=== PATIENT | male | born 1945 | race Caucasian/White ===

== ENCOUNTER 2023-01-31 06:54 | Outpatient (CLI) | payer MEDICARE, BC, SELFPAY | END 2023-01-31 06:55 | disposition home or self-care (01) | LOC: INJ CL 06:58 | PROVIDERS: PCP Surgery; Visit Provider Family Medicine | DX: M54.16 Radiculopathy, lumbar region (principal); M51.36 Other intervertebral disc degeneration, lumbar region | CPT/HCPCS: 64483; J1100; Q9966 ==

== ENCOUNTER 2023-04-25 08:38 | Outpatient (CLI) | payer OTHER, SELFPAY ==
--- OUTSIDE RECORDS SUMMARY | 2023-04-25 08:43 | XMS_ITS | Continuity of Care Document ---
Author Name Unknown Organization [facility] Address [address] [place] [address] Phone Care Team Providers Care Family Intervention Specialist Name Role Phone Milton Newman MD Unavailable Unavailable Allergies, Adverse Reactions, Alerts Substance Reaction Status Criticality thiopental Fever Active No Information codeine Shortness of breath, tongue swelling Acti ve No Information Medications Medication Instructions Dosage Effective Dates (start - stop) Status Comments FINASTERIDE (unknown strength) Not Available - Active SIMVASTATIN (unknown strength) Not Available - Active TAMSULOSIN HCL (unknown strength) Not Available - Active IBUPROFEN (unknown strength) Not Available - Active GABAPENTIN (unknown strength) Not Available - Active LOW DOSE ASPIRIN EC (unknown strength) Not Available - Active Procedures Procedure Date Office/Outpatient Visit,New, Mod 2022 Office/Outpatient Visit,[facility], [facility] [place]Ray Exam Lower Spine 2-3 Views 2017 Office/Outpatient Visit,Est, Mod 2016 X-Ray Exam Lower Spine 2-3 Views 2016 Postop Followup Visit X-Ray Exam Lower Spine 2-3 Views 2016 Postop Followup Visit X-Ray Exam Lower Spine 2-3 Views 2016 Arthdsis Post/Posterolatrl/Postinterbody Lumbar Remove Lumbar Spine Lamina, 1 Seg Remove Added Spine Lamina, 1 Seg 2016 Insert Spine Fixation, Posterior 2016 Insert interbody cage w/fusion 17 Autograft, Spine Surgery, Local 017 Allograft, Spine Surg, Morselized Pa Arthdsis Post/Posterolatrl/Postinterb amanda Lumbar Remove Lumbar Spine Lamina, 1 Seg Pa Assist Remove Added Spine Lamina, 1 S eg Pa Assist Insert Spine Fixation, Posteri or Insert interbody cage w/fusion 17 Office/Outpatient Visit,Est, Mod 2015 Office/Outpatient Visit,Est, Mod 2014 X-Ray Exam Of Lower Spine, Bending X-Ray Exam Of Pelvis, 1-2 Views 015 Office/Outpatient Visit,New, Mod 2013 Advance Directives Directive Yes / No Effective Date File Name No Information Encounters Encounter Description Practice Location Reason(s) For Visit Diagnoses Date Provider Providers Copied on Encounter Office/Outpa tient Visit,New, [facility] [place] [facility], [address], [place], [place], [address], [place] tel:[phone] [facility] No Information 3 Mehbod Amir. [facility], [address], [place], [place], [address], [place]. tel:[phone] Referring Provider: Jarett John, [address], [address] . tel:[phone] Office/Outpa tient Visit,Est, Mod [facility], [address], [place], [place], [address], [place] tel:[phone] [facility] Arthrodesis status 8201 8 Mehbod Amir. [facility], [address], [place], [place], [address], [place]. tel:[phone] Referring Provider: Noy Tolbert, [facility] [address], [address], [place], [address] . tel:[phone] Office/Outpa tient Visit,Est, Mod [facility], [address], [place], [address], [place] tel:[phone] [facility] [place] Spinal stenosis, lumbosacral regionSpondyl olisthesis, lumbar regionArthrod esis statusOsteoar thritis of hip, unspecified Mehbod Amir. [facility], [address], [place], [place], [address], [place]. tel:[phone] Referring Provider: Jarett John, [address], [place], [address] . tel:[phone] [facility], [address], [place], [place], [address], [place] tel:[phone] [facility] [place] Arthrodesis status Demetrius Morrow. [address] [place] [address] [address], [place], [place], [address], [place]. tel:[phone] Referring Provider: Noy Tolbert, [facility] [place] [address], [address], [place], [address] . tel:[phone] [facility], [address], [place], [place], [address], [place] tel:[phone] [facility] Arthrodesis status 7 Mehbod Amir. [facility], [address], [place], [place], [address], [place]. tel:[phone] Referring Provider: Noy Tolbert, [facility] [place] [address], [address], [place], [address] . tel:[phone] [facility], [address], [place], [place], [address], [place] tel:[phone] [facility] No Information 7 Mehbod Amir. [facility], [address], [place], [place], [address], [place]. tel:[phone] Referring Provider: Jarett John, [facility] [address] , [place], [address] . tel:[phone] Office/Outpa tient Visit,Est, Mod [facility], [address], [place], [place], [address], [place] tel:[phone] [facility] [place] Spondylolisth esis, lumbar region Dec-0 8-201 6 Mehbod Amir. [facility], [address] [place] [address] [address], [place], [place], [address], [place]. tel:[phone] Referring Provider: Noy Tolbert, [facility] [address] [place] [address], [address], [place], [address] . tel:[phone] Office/Outpa tient Visit,Est, Mod [facility], [address], [place], [place], [address], [place] tel:[phone] [facility] [place] Osteoarthriti s of hipSpinal stenosis, lumbosacral region Nov-0 4-201 5 Tomasz Villafuerte. [facility], [address] [place] [address], [address], [place], [place], [address], [place]. tel:[phone] Referring Provider: Noy Tolbert, [facility] [address] [place] [address], [address], [place], [address] . tel:[phone] Office/Outpa tient Visit,New, Mod Z [facility], [address] [facility] [address] [address], [place], [address], [place] tel:[phone] [facility] - [facility] No Information 0 3201 4 Tomasz Villafuerte. [facility], [address] [place] [address], [address], [place], [place], [address], [place]. tel:[phone] Referring Provider: Jarett John, [facility] [address] , [place], [address] . tel:[phone] Family History Family Member Type Diagnosis Age At Onset Problem (finding) Payers Payer name Insurance type Covered alliance party [place] [id number] Medicare [facility] BL [id number] 1 [employer] [place] [id number] Social History Type Description Quantity Date Captured Comments Sex Male Smoking Status No Information Chief Complaint And Reason For Visit No Information Reason For Referral Reason For Referral No Information Plan Of Treatment Date Type Action Status Future Order: Radiology Order F/ E Lumbar (F/ELumb), Ordered on: Ordered Future Order: Radiology Order Pe lvis 1 Or 2 Views (pelvis), Ordered on: Ordered History Of Present Illness Encounter Date Complaint History Of Prese nt Illness No Information Functional Status Date Functional Assessmen t No Information Instructions Date Instruction Additional Infor tamiko Weight Management Education Rela nolan to Overweight Weight management: I nstructed to return to General Practitioner timeframe: 1 Month. Related to Overweight Weight Management Education Rela nolan to Overweight Weight management: I nstructed to return to General Practitioner timeframe: 1 Month. Related to Overweight Weight Management Education Rela nolan to Overweight Weight management: I nstructed to return to General Practitioner timeframe: 1 Month. Related to Overweight Assessments Type Assessment Date No Information Patient Care Teams Name Effective Dates (start - stop) Status Members No Information
--- NOTE | 2023-04-25 09:15 | CRLHL7_ITS ---
For Patients: As a result of the Century Cures Act, medical imaging exams and procedure reports are released immediately into your electronic medical record. You may view this report before your referring provider. If you have questions, please contact your health care provider. Indication: Worsening headaches. Technique: Multiplanar, multisequence MRI of the brain was performed without intravenous contrast. Comparison: None relevant available. Findings: Mild thinning of the corpus callosum. The pituitary gland and clivus appear intact. Mild degenerative change visualized upper cervical spine. There is a 2 mm focus of restricted diffusion within the left frontal lobe. Associated T2 FLAIR hyperintensity. The ventricles are proportionate to the cerebral sulci. The 4th ventricle appears midline. The basal cisterns appear patent. No abnormal extra-axial fluid collection identified. Moderate parenchymal volume loss. Moderate to severe T2 FLAIR hyperintense foci within the subcortical and periventricular white matter, favored to represent chronic ischemic microvascular disease. There is no intracranial mass, abnormal mass-effect or midline shift identified. Major intracranial vascular flow voids appear grossly intact. Both globes are preserved. Impression: 1. 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 2. 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 Dictated by Ed Pickard MD @ 04/25/2023 2:52:49 PM (Electronically Signed)
== END 2023-04-25 08:39 | disposition home or self-care (01) ==
PROVIDERS: PCP Surgery; Visit Provider Chiropractor
DX: R51.9 Headache, unspecified (principal); I63.9 Cerebral infarction, unspecified; R55 Syncope and collapse
CPT/HCPCS: 70551

== ENCOUNTER 2023-06-08 14:38 | Outpatient (CLI) | payer OTHER, SELFPAY ==
--- OUTSIDE RECORDS SUMMARY | 2023-06-08 14:42 | XMS_ITS | Continuity of Care Document ---
Author Name Unknown Organization [facility] Address [address] [place] [address] Phone Care Team Providers Care Mail Clerk Name Role Phone Milton Newman MD Unavailable [...] Procedure Date Office/Outpatient Visit,New, Mod 2022 Office/Outpatient Visit,[facility], [facility] [place] X-Ray Exam Lower Spine 2-3 Views [...] Diagnoses Date Provider Providers Copied on Encounter [facility], [address], [place], [place], [address], [place] tel:[phone] [facility] No Information 3 Mehbod Amir. [facility], [address] [place] [address] [address], [place], [place], [address], [place]. tel:[phone] Office/Outpa tient Visit,New, Mod [facility], [address], [place], [place], [address], [place] tel:[phone] [facility] [place] No Information 3 Mehbod Amir. [facility], [address] [place] [address] [address], [place], [place], [address], [place]. tel:[phone] Referring Provider: Jarett John, [facility] [address], [place], [address] . tel:[phone] Office/Outpa tient Visit,Est, Mod [facility], [address], [place], [place], [address], [place] tel:[phone] [facility] [place] Arthrodesis status 201 8 Mehbod Amir. [facility], [address] [place] [address] [address], [place], [place], [address], [place]. tel:[phone] Referring Provider: Noy Tolbert, [facility] [address], [address], [place], [address] . tel:[phone] Office/Outpa tient Visit,Est, Mod [facility], [address], [place], [place], [address], [place] tel:[phone] [facility] [place] Spinal stenosis, lumbosacral regionSpondyl olisthesis, lumbar regionArthrod esis statusOsteoar thritis of hip, unspecified 0-201 7 Mehbod Amir. [facility], [address] [place] [address] [address], [place], [place], [address], [place]. tel:[phone] Referring Provider: Jarett John, [address], [address] . tel:[phone] [facility], [address], [place], [place], [address], [place] tel:[phone] [facility] [place] Arthrodesis status 0201 7 Demetrius Morrow. [address] [place] [address] [address], [place], [place], [address], [place]. tel:[phone] Referring Provider: Noy Tolbert [facility] [address], [address], [place], [address] . tel:[phone] [facility], [address], [place], [place], [address], [place] tel:[phone] [facility] [place] Arthrodesis status 3-201 7 Mehbod Amir. [facility], [address] [place] [address] [address], [place], [place], [address], [place]. tel:[phone] Referring Provider: Noy Tolbert [facility] [address], [address], [place], [address] . tel:[phone] [facility], [address], [place], [place], [address], [place] tel:[phone] [facility] No Information 0-201 7 Mehbod Amir. [facility], [address], [place], [place], [address], [place]. tel:[phone] Referring Provider: Jarett John, [facility] [address], [place], [address] . tel:[phone] Office/Outpa tient Visit,Est, Mod [facility], [address], [place], [place], [address], [place] tel:[phone] [facility] [place] Spondylolisth esis, lumbar region 0 8201 6 Mehbod Amir. [facility], [address] [place] [address] [address], [place], [place], [address], [place]. tel:[phone] Referring Provider: Noy Tolbert, [facility] [address] [place] [address], [address], [place], [address] . tel:[phone] Office/Outpa tient Visit,Est, Mod [facility], [address], [place], [place], [address], [place] tel:[phone] [facility] [place] Osteoarthriti s of hipSpinal stenosis, lumbosacral region Nov-0 4-201 5 Tomasz Villafuerte. [facility], [address] [place] [address], [address], [place], [place], [address], [place]. tel:[phone] Referring Provider: Noy Tolbert, [facility] [address], [address], [place], [address] . tel:[phone] Office/Outpa tient Visit,New, Mod Z [facility], [address] [place] [address] [address], [place], [address], [place] tel:[phone] [facility] No Information 0 3-201 4 Tomasz Villafuerte. [facility], [address], [address], [place], [address], [place]. tel:[phone] Referring Provider: Jarett John, [facility] [address], [place], [address] . tel:[phone] Family History Family Member Type Diagnosis Age At Onset Problem (finding) Payers Payer name Insurance type Covered alliance party ID Gt tripathi(s) [facility] [id number] Medicare [facility] [id number] 1 [facility] [place] [facility] [id number] Social History Type Description Quantity Date Captured Comments Sex Male Smoking Status No Information Chief Complaint And Reason For Visit No Information Reason For Referral Reason For Referral No Information Plan Of Treatment Date Type Action Status Appointment Sen Lowery BOOKED Future Order: Radiology Order AP Lateral Lumbar (APLatLumb), Ordered on: Ordered Future Order: Radiology Order F/ E Lumbar [...]
== END 2023-06-08 14:39 | disposition home or self-care (01) ==
LOC: RAD 14:40
PROVIDERS: PCP Surgery; Visit Provider Chiropractor
DX: I63.9 Cerebral infarction, unspecified (principal); I35.1 Nonrheumatic aortic (valve) insufficiency; I34.0 Nonrheumatic mitral (valve) insufficiency; I07.1 Rheumatic tricuspid insufficiency
CPT/HCPCS: 93306

== ENCOUNTER 2023-09-20 09:45 | Outpatient (RCR) | payer MEDICARE, BC, SELFPAY ==
--- NOTE | 2023-07-12 10:21 | PT.OPEX ---
PT [place] Outpatient Eval PT [facility] Outpatient Eval Start: 07/07/23 11:42 Freq: Status: Active Protocol: Document 07/12/23 07:21 MLS (Rec: 07/12/23 10:05 MLS [id number]) E-signed By Josefa Liu DPT Physical Therapy Outpatient Evaluation Insurance Information Recert Due Date 10/09/23 Insurance Name Medicare B,Other; See Comments Insurance Information/Comments [facility] Medical Diagnosis M48.061 spinal stenosis of lumbar region Treating Diagnosis M54.5 LBP R26.2 Difficulty walking M54.16 Radiculopathy, lumbar region Referring MD Jarett Gant MD Subjective Subjective Roman reports to physical therapy with reports of low back pain that started years ago. He states that he had an injection in May, but it didn't help. He reports that he had minimal relief of pain for about a week but then all of his pain was back. He currently is going to try physical therapy before making plans for surgery. He reports that the pain goes across his low back, at his belt line, and is worse on the left side, but goes down his right leg. He states that he has right leg numbness and tingling to his knee, and it happens anytime he moves from sit to stand. He states that the pain is dull, achy, throbbing, sharp, and burning in nature. He states that sitting in his easy chair with his legs up is the best position. He reports that he can tolerate shorter sits but the longer he sits, the worse the pain gets. He states that any standing is bad, and walking is even worse. He states that he will use an ice pack and take ibuprofen at times. He reports that hot baths feel good, but he has a lot of difficulty getting out of the tub. He reports that the pain has really gotten bad over last three months. He reports that a couple months ago he was walking 10,000 steps and now he is rivera to get 1000 steps. 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 He states that he is able to sleep flat on his back with his right ankle crossed over his left or on his right side in bed. He states that he does fall asleep in his easy chair during the day. He also reports that he has been having severe dizziness and severe neck pain. He reports that his dizziness started about a year ago and caused him to start walking with a cane. He states that movement makes the dizziness worse. He reports that his primary physician , so he is just starting to get some testing done regarding his dizziness next week. He rates his dizziness at a 10/10 at times. According to the patient, he is having neck x- rays and an EEG next week. He states that his bedroom is upstairs, and bathroom is on the main level. He reports that he has 15 stairs to go up and down in his home. He reports that he leads up with his right leg and follows with his left leg. He states that his left leg feels weak, and he is afraid it will give out on him. He states that he has a recumbent bike downstairs, but currently isn't using it. He states that he had two falls in last 3 months, and both were from standing up and right leg gave out. Pain Comments Today: 9/10 on a 0-10 pain scale with 10 = extreme pain At its worst: 10/10 At its best: 4-5/10 Current Work Status Retired Occupation Retired Preferred Name Roman Precautions Treatment Precautions/Contraindications Patient has a very long PMH. He has had diabetes for several years. He reports diagnosis of bladder cancer for six years, and it is in remission now. It has come back three times in the last 6 years. He has left IRA and bilateral TKA. He states that he had right TKA during the first week of [facility], so he didn't do any rehab after surgery. He reports that he has had problems with his right knee ever since. He states that he had a TIA about a month ago. He did a CT scan, which showed 3 previous TIAs. He states that he does not notice any physical impairments from these, but he does lose control of right eye when it happens. Weight Bearing Status Full Weight Bearing Therapy Limitations/Systems Review Other Medical Problem Objective Other/Pertinent Objective Objective evaluation limited secondary to patients' intolerance of all positions due to pain. Patient ambulates with a single point cane Posture Assessment: Forward head posture Decreased lordosis LUMBAR ROM Flexion: full, severe pain with coming up Extension: 0 severe pain Right Sidebend: 25% severe pain Left Sidebend: 10% severe pain Right Rotation: 25% severe pain Left Rotation: 25% severe pain LE MMT Hip flexion: R 3-/5 L 3-/5 severe pain Hip Extension: not tested secondary to pain Hip abduction: not tested secondary to pain Knee extension: R 5/5 L 5/5 Knee Flexion: R 4/5 L 4-/5 severe pain Dorsiflexion/heel walk: unable to perform Plantarflexion/toe walk: unable to perform Great Toe Extension: R 5/5 L 5 /5 Severe pain and difficulty moving from sit to supine on treatment table JOINT MOBILITY/PALPATION Moderate tenderness with multiple tender spots along bilateral QL and ES with palpation SPECIAL TESTS -Single leg stance: unable to perform -Slump test: positive on left with pain -Straight leg raise: pain on both sides SI/HIP - unable to perform due to severity of pain with movement in supine position -ASHELY: CAROLIN: -MAK: [place]: Access Code: [email or web address] URL: [email or web address] Date: 07/12/2023 Prepared by: Josefa Liu Exercises - Supine Heel Slide - 2 x daily - 7 x weekly - 2 sets - 10 reps - Supine Posterior Pelvic Tilt - 2 x daily - 7 x weekly - 2 sets - 10 reps - Supine 90/90 Alternating Heel Touches with Posterior Pelvic Tilt - 2 x daily - 7 x weekly - 2 sets - 10 reps Functional Test Performed & Score 29/50 Modified Oswestry Low Back Pain Questionnaire Assessment Assessment/Impression Patient is a 78-year-old male presenting to physical therapy for evaluation and treatment of low back pain. Patient presents with a very complicated medical history and multiple contributing factors to his current status. He has severe low back pain worse on the right side but radiating down into his right leg. He has severe dizziness and neck pain that he will be seeing his physician for next week. Today, the severity with pain upon any movement was the limiting factor in his evaluation and treatment. Any movement also brought on severe dizziness. The pain and dizziness hold him back from doing most things throughout his day besides sitting with his feet elevated . Patient is willing to try physical therapy in hopes of some relief. Patient would benefit from skilled physical therapy interventions to facilitate return to prior level of function, improve overall activity tolerance and address any remaining impairments. Primary Functional Limitations sitting, standing, walking, getting in/out of bed, movement in all directions, severe dizziness, severe LBP, bilateral knee pain worse on right, leg weakness Plan of Care Rehabilitation Potential Fair Rehabilitation Potential Comments Patient has a very complicated medical history with multiple current issues. The severity of his pain and dizziness were limiting factors in today 's evaluation. i Physical Therapy Goals STG: Pt will demonstrate independence in performance of home exercise program with the use of video and/or handouts in order to optimize functional mobility and reduce risk for re-injury. Patient will be able to sit for up to one hour with <3/10 pain. Patient will be able to ride his recumbent bike for 20 min with <3/10 pain. LTG: Pt will be able to ascend/ descend 1 flight of stairs in order to get to and from bedroom and bathroom with <3/ 10 pain. Patient will be able to walk and get 5000 steps/day to tolerate moving around his home and going shopping wtih his with <3/10 pain. Patient will report pain levels <2/10 with all other activities in order to improve functional mobility at home and during functional leisure activities. Coordination/Communication With Referral Source Treatment Plan/Direct Interventions Gait Training,Manual Therapy, Neuromuscular Re-ed, Therapeutic Activities, Therapeutic Exercises Patient Will Be Discharged From Therapy Independently Progressing Evaluation Billing Untimed Code Treatment Minutes 45 Complexity High Certification Information Initial Certification Date 07/12/23 Ending Certification Date 10/09/23 Provider Signature Shows Agreement With POC & Medical Necessity Physician Signature & Date Requested Please Sign/Date Here Physician Comment/Change : Physician NPI Number #
== END 2023-11-06 15:15 | disposition home or self-care (01) ==
PROVIDERS: PCP Surgery; Visit Provider Surgery
DX: M48.061 Spinal stenosis, lumbar region without neurogenic claudication (principal); Z51.89 Encounter for other specified aftercare
CPT/HCPCS: 97110; 97140; 97163; 97530

== ENCOUNTER 2024-09-11 14:00 | Outpatient (RCR) | payer MEDICARE, BC, SELFPAY | END 2024-09-27 12:22 | disposition home or self-care (01) | PROVIDERS: PCP Surgery; Visit Provider Surgery | DX: I63.9 Cerebral infarction, unspecified (principal); R47.89 Other speech disturbances; Z51.89 Encounter for other specified aftercare | CPT/HCPCS: 96125; 97110; 97112; 97162; 97165; 97530; 97535 ==

== ENCOUNTER 2025-06-20 11:30 | Emergency (ER) | payer MEDICARE, OTHER, SELFPAY ==
--- OUTSIDE RECORDS SUMMARY | 2025-06-20 11:33 | XMS_ITS | Clinical Summary ---
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 90 tablet 3 7 Active valproic acid 250 mg capsule Take 3 capsules by mouth 2 times daily. 0 8 Active oxybutynin (DITROPAN) 5 mg tabletIndication s:Overactive bladder Take 0.5 tablets by mouth 2 times daily. 60 tablet 0 Active blood sugar diagnostic (CONTOUR NEXT TEST STRIPS) stripIndications :Type 2 diabetes mellitus without complication, without long-term current use of insulin (HC) Dispense item covered by pt ins. E11.9 NIDDM type II - Test 1 time/day. Reason: 100 Strip 3 0 Active lancets (MICROLET LANCET)Indicatio ns:Type 2 diabetes mellitus without complication, without long-term current use of insulin (HC) Dispense item covered by pt ins. E11.9 NIDDM type II - Test 1 time/day. 100 Each 3 0 Active blood-glucose meterIndications :Type 2 diabetes mellitus without complication, without long-term current use of insulin (HC) Test one time daily 1 Device 0 Active riboflavin, vitamin B2, (VITAMIN B2) 100 mg tablet Take 400 mg by mouth once daily. 3 Active cyanocobalamin (VITAMIN B12) 1,000 mcg tablet Take 1,000 mcg by mouth once daily. 3 Active atorvastatin (LIPITOR) 20 mg tablet Take 20 mg by mouth at bedtime. 3 Active aspirin (ECOTRIN) 81 mg enteric coated tablet Take 81 mg by mouth once daily with a meal. 3 Active amoxicillin (AMOXIL) 500 mg capsule Take 500 mg by mouth. 3 Active acetaminophen (TYLENOL) 325 mg tablet Take 650 mg by mouth every 6 hours. 3 Active methyl salicylate-menth ol (ZOILA WALKER; MENTHOLATUM DEEP HEAT) 15-10 % topical cream Apply topically to affected area(s) 3 times daily if needed. 3 Active ibuprofen (ADVIL; MOTRIN) 800 mg tablet Take 800 mg by mouth three times daily with meals. 3 Active cellulose-carbox y-mc sod,bulk, 88.3-11.7 % powd Place 3 Drops into both eyes three times daily. 3 Active metFORMIN (GLUCOPHAGE XR) 500 mg Extended-Release tabletIndication s:Type 2 diabetes mellitus without complication, without long-term current use of insulin (HC) Take 3 Tablets (1,500 mg) by mouth once daily. 270 Tablet 4 Active backup administrator (Dexcom G7 Legal Document Assistant) for continuous blood glucose monitor (CGM)Indications :Type 2 diabetes mellitus without complication, without long-term current use of insulin (HC) This is for the glucose BALANCER SCALE , also order the sensors. 1 Each 5 Active sensor (Dexcom G7 Sensor) for continuous blood glucose monitor (CGM)Indications :Type 2 diabetes mellitus without complication, without long-term current use of insulin (HC) To be used to read blood sugars, change sensor every 10 days. This is for the glucose SENSOR, also order the backup administrator. 9 Each 3 5 Active semaglutide (OZEMPIC) 2 mg/3 mL subcutaneous pen Inject 0.5 mg subcutaneous once weekly. 5 Active sildenafiL (pulm.hypertensi on) 20 mg tabletIndication s:Erectile dysfunction, unspecified erectile dysfunction type Take 1-5 pills (start at lower dose and increase next time if needed) 30 mins prior to sexual intercourse 30 Tablet 3 5 Active Active Problems Problem Noted Date Diagnosed Date Cerebral infarction, unspecified 08/09/2024 Bladder tumor 08/09/2024 Sensorineural hearing loss, bilateral 11/07/2022 Seizure disorder 10/25/2019 Overview (10/25/2019): On valproic acid. Last seizure years ago. Follows with [facility] at [facility]. Type 2 diabetes mellitus wit h diabetic polyneuropathy, without long-term current use of insulin 08/25/2017 Lumbar spinal stenosis 10/19/2016 Arthritis of left hip 12/04/2015 Benign neoplasm of colon 01/02/2009 Overview (08/26/2014): Colonoscopy 12/2008 polyp repeat in 5 years Colonoscopy 08/2014 normal repeat in 5 years Carpal tunnel syndrome 01/28/2008 Degeneration of cervical intervertebral disc SLEEP APNEA 01/02/3008 AHI-60 01/14/2008 Backache, unspecified 03/29/2007 Tinnitus of both ears 03/29/2007 Hyperlipidemia, unspecified 03/29/2007 Chronic headache Overview (11/10/2008): secondary to neck surgery Erectile dysfunction Benign prostatic hyperplasia Resolved Problems Problem Noted Date Diagnosed Date Resolved Date Other and unspecified hyperlipidemia 12/25/2007 12/25/2007 Unspecified sleep apnea 12/25/2007 04/04/2008 Encounters Date Type Department Care Team Description 05/30/2025 1:35 PM CDT Office Visit [facility] [address] [place] [address] Jarett Gant MD Diabetes 05/30/2025 Travel 05/12/2025 1:00 PM CDT Office Visit [facility] [address] [facility] [address] Marjan Rahman, Chuck Hearing Aid (NGUYEN check) 05/12/2025 Travel 05/05/2025 Telephone [facility] [address] [facility] [address] Maxim Norris, Chuck 03/26/2025 4:00 PM CDT Office Visit [facility] [address] [place] [address] Maxim Norris, AuD Hearing Aid 03/26/2025 Travel from Last 3 Months Immunizations Immunization Administration Dates Next Due COVID-19 vaccine (Pfizer-Bio NTech 30mcg/0.3mL) 12YO+ BIVALENT PF, MDV 09/08/2022 COVID-19 vaccine (Pfizer-Bio NTech 30mcg/0.3mL) PF, MDV 07/07/2021,11/28/2020,11/07/2020 Influenza Virus, Unspecified 07/08/2022, 07/07/2021,06/25/2020,2018,08/10/2018,08/09/2017 Influenza, High-dose Inactivated 08/07/2024,11/2017 Influenza, High-dose Quadriv alent Inactivated 08/10/2023 Influenza, Inactivated AIIV4 (Age 65+ Years) Preserv Free 08/10/2023 Influenza, Inactivated IIV3 (Age 65+ Years) Preserv Free 08/09/2017 Pneumococcal Conj 20-valent (Prevnar 20) 07/08/2022 Pneumococcal Poly,23-Valent (Pneumovax) 08/10/2018 TD, UNSPECIFIED 10/09/2009 Td (Age >=7 Years) 10/13/2005 Td, Preservative Free (age > = 7 Years) 10/13/2005 Tdap 08/23/2015 Zoster (Shingrix-RZV, recombinant) 12/08/2021, Zoster (Zostavax-ZVL, live) 2006 Family History Medical History Relation Name Comments Heart Disease Father Stroke Father Blood Disease Mother blood disease, rare Cancer-breast Sister 5 Relation Name Status Comments Brother 1 MVA Brother 2 Alive Father (Age 72) [place] Mother (Age 73) Sister 1 breast ca Sister 2 Alive Sister 3 Alive Sister 4 Alive Sister 5 Social History Tobacco Use Types Packs/Day Years Used Date Smoking Tobacco: Never Smokeless Tobacco: Never Tobacco Cessation:Counseling Given: Yes Alcohol Use Standard Drinks/Week Comments No 0 (1 standard drink = 0.6 oz pur e alcohol) PHQ-2 Answer Date Recorded PHQ-2 TOTAL SCORE 1 08/09/2024 Social Connections Answer Date Recorded Do you often feel lonely or isolated from those around you? 0 11/11/2024 Financial Resource Strain Answer Date R ecorded Difficulty of Paying Living Expenses 3 11/11/2024 Difficulty of Paying Living Expenses Not on file 11/11/2024 Food Insecurity Answer Date Recorded Do you worry your food will run out before you are able to buy more? 1 11/11/2024 Transportation Needs Answer Date Record ed Does lack of transportation keep you from medica l appointments? 1 11/11/2024 Does lack of transportation keep you from work, meetings or getting things that you need? 1 11/11/2024 Housing Stability Answer Date Recorded What is your housing situation today? 1 11/11/2024 Utilities Answer Date Recorded Do you have trouble paying f or utilities (for example, heat, electricity, water, phone)? 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 Gender Identity Not on file Sexual Orientation Not on file Obstetrics History Last Filed Vital Signs Vital Sign Reading Time Taken Comments Blood Pressure 128/80 05/30/2025 1:28 PM CDT Pulse 55 05/30/2025 1:28 PM CDT Temperature 36.6 C (97.8 F) 11/09/2019 9:26 AM SYSTEMS PROJECT MANAGER Respiratory Rate 16 03/30/2017 3:13 PM CDT Oxygen Saturation 97% 05/30/2025 1:27 PM CDT Inhaled Oxygen Concentration - - Weight 87.3 kg (192 lb 8 oz) 05/30/2025 1:27 PM CDT Height 158.1 cm (5' 2.24) 08/09/2024 1:11 PM CD T Body Mass Index 34.93 08/09/2024 1:11 PM CDT Plan of Treatment Upcoming Encounters Date Type Department Care Team (Late st Contact Info) Description 07/03/2025 3:40 PM CDT Office Visit [facility] [address] [facility] [address] [place] [address] Mallorie Liu MD [address] [facility] [address] [place] [address] Health Maintenance Due Date Last Done Comments Hepatitis C screening for age 18-79 1963 RSV vaccine for adults or (1 - 1-dose 75+ series) 2021 COVID-19 vaccine series ( season) 2025 08/07/2024, 08/10/2023, 09/08/2022, Additional history exists Influenza Vaccine (#1) 2025 , 08/10/2023, 07/08/2022, Additional history exists BMI (ht and wt on same day) for age 18+ 08/09/2025 08/09/2024, 11/06/2023, 10/25/2019, Additional history exists Depression screening for age 12+ 08/09/2025 08/09/2024, 11/06/2023, 09/27/2022, Additional history exists Medicare Wellness for age 65+ 08/10/2025 08/09/2024 Tetanus booster 08/23/2025 08/23/2015, 02/2015 (Completed outside of [facility]), 10/09/2009, Additional history exists Zoster (shingles) series for age 50+ Completed 12/08/2021, 09/09/2021, 2006 Pneumococcal series for age 50+ Completed 07/08/2022, 08/10/2018 Hepatitis B series for 19+ Aged Out N o longer eligible based on patient's age to complete this topic Medical Devices Implanted Type Area Ice Scraper Device Identifier Shelf Expiration Date Model / Serial / Lot [id number] 1-4mm 30cc Medtronic Chips Canclls Freeze Dried Implanted:Qty: 1 on 10/18/2016 by Milton Newman MD at [facility] Explanted:at [facility] (Quantity not on file) N/A: Spine Medtronic Spine/Ortho 07/18/2021 [id number] / [id number] / Screw Lmbr Post 6.5x45mm Trio Va Std - [id number] Implanted:Qty: 2 on 10/18/2016 by Milton Newman MD at [facility] N/A: Spine Dang Spine [id number] / / Screw Lmbr Post 6.5x50mm Trio Va Std - [id number] Implanted:Qty: 2 on 10/18/2016 by Milton Newman MD at [facility] N/A: Spine Cheswold Spine [id number] / / Cnnctr Lmbr 53-73mm Joan Iii Va - [id number] Implanted:Qty: 1 on 10/18/2016 by Milton Newman MD at [facility] N/A: Spine Cheswold Spine [id number] / / Cnnctr Lmbr Sm Trio Offset - [id number] Implanted:Qty: 4 on 10/18/2016 by Milton Newman MD at [facility] N/A: Spine Cheswold Spine [id number] / / Peter Lmbr 40mmx3.5in Joan Ii Radius - [id number] Implanted:Qty: 2 on 10/18/2016 by Milton Newman MD at [facility] N/A: Spine Dang Spine [id number] / / Spacer Lmbr [id number] 0deg Avsunilif - [id number] Implanted:Qty: 1 on 10/18/2016 by Milton Newman MD at [facility] N/A: Spine Cheswold Spine [id number] / / Procedures Procedure Name Priority Date/Time Associated Diagnosis Comments PATH TISSUE EXAM Routine 05/30/2025 2:08 PM CDT Lesion of skin of left ear HEMOGLOBIN A1C MONITORING (POCT) Routine 05/30/2025 1:21 PM CDT Type 2 diabetes mellitus with diabetic polyneuropathy, without long-term current use of insulin (HC) from Last 3 Months Results * PATH TISSUE EXAM (05/30/2025 2:08 PM CDT) Case Report Pathology Report Case: [id number] Authorizing Provider: Jarett Gant MD Collected: 05/30/2025 1408 Ordering Location: [facility] Received: 05/30/2025 1549 Clinic Pathologist: Nelida Dixon MD Specimen: Left Ear 06/03/2025 3:21 PM CDT [facility] [employer] [facility] Final Diagnosis SKIN, LEFT EAR, BIOPSY: 1. 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 Margins: POSITIVE (deep and peripheral) 06/03/2025 3:21 PM CDT [facility] [employer] [facility] at 1521 CDT Clinical Information Left ear skin lesion. 06/03/2025 3:21 PM CDT [facility] Gross Description A) Received in formalin, labeled with the patient's name and date of , is a 0.5 x 0.3 cm skin biopsy. There is a 0.5 x 0.3 cm crusted morin lesion. The specimen is inked blue, bisected and entirely submitted in one cassette. [facility] 06/02/2025 06/03/2025 3:21 PM CDT [facility] Microscopic Description The final diagnosis is based on microscopic examination of appropriate sections of all specimens. Sections show a hyperkeratotic surface epithelium with significant cytologic atypia, marked lack of polarization, and mitotic activity but no invasive component. There is solar elastosis. The presence of blue ink is confirmed on tissue sections. 06/03/2025 3:21 PM CDT [facility] Additional Information Interpreted at [facility] - [address] [place] [address], [place] [address] 06/03/2025 3:21 PM CDT [facility] [employer] [facility] Other (Left Ear) Non-Blood / Unknown 05/30/2025 2:08 PM CDT 05/30/2025 3:49 PM CDT us Jarett Gant MD PATHOLOGY/CYTOLOGY Final R esult [facility] [address] [place] [address], * (ABNORMAL) POCT Hemoglobin A1C Monitoring (05/30/2025 1:21 PM CDT) POC HEMOGLOBIN A1C 6.4(H) <6.0 % OF TOTAL HGB 05/30/2025 1:31 PM CDT [facility] Comment: Any point of care results exhibiting inconsistency with the patient's clinical status should be repeated using a different testing method. Blood BLOOD SPECIMEN / Unknown [facility] / Unknown 05/30/2025 1:21 PM CDT 05/30/2025 1:22 PM CDT Jarett Gant MD CHEMISTRY Final Resu lt Performing Organization Address [facility] Co de Phone Number [facility] [address] [address], [place] [phone] [facility] [address] [place] [address], [place] [phone] from Last 3 Months Insurance MEDICARE PART B HB ONLY MEDICARE PART A HB ONLY [employer] [place] BLUE HB ONLY [facility] [facility] MEDICARE ADVANTAGE MR Advance Directives * Full Code (Latest Code Status on File) Date Activated Date Inactivated Comments 10/18/2016 7:38 PM 10/21/2016 12:40 PM * Full Code Date Activated Date Inactivated Comments 10/18/2016 10:33 AM 10/18/2016 7:38 PM Care Teams Railroad Brake Repairer Relationship Specialty Start Date End Date Jarett Gant MD [address] [place] [address] PCP - General Family Practice 10/15/15 Jeovany Brown MD [address] [place] [address] Family Practice 11/06/23
[2025-06-20 11:41] VITALS: BP 123/91; PULSE 85; RESP 18; TEMP 37.1; O2SAT 95; BMI 34.0
--- NOTE | 2025-06-20 12:00 | ED.GENADULT ---
HPI - General Adult General Time Seen by Provider: 12:00 Date Seen: 06/20/25 Chief complaint: Back Injury/Pain Stated complaint: Fall, back pain Time Seen by Provider: 06/20/25 11:41 Source: patient and RN notes reviewed Mode of arrival: ambulatory Limitations: no limitations History of Present Illness HPI narrative: This 80-year-old male is brought in and accompanied by his son with 2 falls. He was placing up assign, caught his foot in the hole and fell hitting his head on the pole of the sign, fell onto the right shoulder and elbow. He later was walking with his , his felt he tripped on the curb but he feels like he just lost his balance. Both he and his son corroborate that he has chronic balance issues. He has a history of a TBI. He denies any headache or visual changes, no loss of consciousness. No headache. He has chronic neck pain but states that is at baseline. His son notes that his neck is completely fused. He notes no pain going down into the arms but he does have right shoulder pain, was complaining about right elbow pain in triage. He denies any pain in his left arm, he does state when he went down, his right chest wall hip this IN, this hurt initially but isn't. He denies any chest pain now, no shortness of breath. No abdominal pain. He takes aspirin daily but no blood thinners. Related Data Home Medications ?Medication ?Instructions ?Recorded ?Confirmed aspirin 81 mg capsule 81 mg PO DAILY 06/20/25 06/20/25 atorvastatin 20 mg tablet 20 mg PO DAILY 06/20/25 06/20/25 cyanocobalamin (vitamin B-12) 1,000 mcg PO DAILY 06/20/25 06/20/25 1,000 mcg capsule finasteride 5 mg tablet 5 mg PO DAILY 06/20/25 06/20/25 metformin 500 mg tablet 500 mg PO BID 06/20/25 06/20/25 oxybutynin chloride 5 mg tablet 2.5 mg PO DAILY 06/20/25 06/20/25 valproic acid 250 mg capsule 500 mg PO BID 06/20/25 06/20/25 Allergies Allergy/AdvReac Type Severity Reaction Status Date / Time codeine Allergy Severe Anaphylaxis Verified 06/20/25 11:52 sodioum pentothol Allergy Severe high fever Uncoded 06/20/25 11:52 Review of Systems Status of ROS: Reports: 6 or more systems reviewed and unremarkable except as noted in History and below [facility] Medical History (Updated 06/20/25 @ 14:05 by Meagan Hanson MD) TBI (traumatic brain injury) ?S06.9XAA - Unspecified intracranial injury with loss of consciousness status unknown, initial encounter (ICD-10) Exam Const: Vital Signs, click to edit/add: Vital Signs - 24 hr 06/20/25 11:41 Temperature 98.7 F Pulse Rate [Pulse Oximeter] 85 Respiratory Rate 18 Blood Pressure [Le ft Upper Arm] 123/91 H Pulse Oximetry 95 Oxygen Delivery Me thod Room Air This 80-year-old male is alert, interactive, no apparent distress. He is very conversive and talkative. Head atraumatic, face atraumatic. He is wearing glasses, no facial trauma noted. Pupils equal round, sclera clear, extraocular muscles intact. Symmetrical facial function. Neck with no palpable tenderness, baseline range of motion per his report, no increased pain with range of motion. He has limitations of mobilization of his right shoulder. I do not feel like there is any dislocation. His clavicles seemed to have the same contour and are nontender. Any attempt at mobilizing his shoulder is painful though. He complains of pain when I attempt to flex and extend his elbow. His right wrist has no pain, hand and fingers seem to be normal. Left extremity/upper is normal without any pain on range of motion, no traumatic change. He is able to sit up, no midline tenderness of his back, no traumatic change noted. Lungs are clear, good air entry, no wheezing or crackles, no tachypnea. CV regular rate and rhythm, no murmur. No tenderness over his anterior chest wall, no traumatic skin changes noted. Abdomen is mildly obese but soft, nontender. He did ambulate in, is no complains of pain through his pelvis or his lower extremities. Documenting provider has reviewed patient's vital signs: yes Course Course ED Course: We have discussed doing head CT imaging and the rationale for this. We did discuss his patient's age it can take much less trauma for bleeding and he is on an 81 mg aspirin. I do not suspect any clinically significant traumatic bleed at this time but we did state that sometimes we will find small bleeds that need following through time to ensure that they are not becoming critical. He does agree to do the head CT. I do think we should do some cervical imaging. I do not know that he needs a full CT of his neck as he has no acute neurologic changes and does not have any new change to his pain in his neck. However, the fact that he has chronic neck pain I do think I at least want some basic imaging. Will look at his chest as well his his right shoulder and elbow. Will get him some Tylenol for pain management. He did take an ibuprofen couple of hours ago but reviewed with him that it is fine to try some Tylenol now Reevaluation(s) Time of Reevaluation #1: 13:56 Reevaluation #1: Reviewed negative imaging as far as fractures, no brain bleed. He is just getting is Tylenol now. I had unfortunately for got ordered after talking to him but we are getting him a dose. Did remove the arm sling and re-evaluated his shoulder. He is having pain with forward flexion or any abduction. I do suspect he could have a rotator cuff injury from his fall. We discussed that there is no fracture seen. Reviewed pendulum exercises for her shoulder to avoid frozen shoulder syndrome. He certainly is welcome to use the arm sling for comfort but he needs understand that immobilizing his shoulder without range of motion can lead to frozen shoulder syndrome. He states he is feeling a bit of a headache and some dizziness. His initial TBI stemmed from an incident back in the . He has suffered for years from this. I suspect that his headache and dizziness may be some post concussion symptoms being elucidated again from his fall and hitting his head. His is here now. She heard all this discussion. Patient notes his neck pain is at its baseline, no pain going into arms, nothing new as far as his usual neck symptoms. Vital Signs Vital signs: Initial Vital Signs Temperature 98.7 F 06/20/25 11:41 Temperature Source Temporal Artery Scan 06/20/25 11:41 Pulse Rate 85 06/20/25 11:41 Respiratory Rate 18 06/20/25 11:41 Blood Pressure 123/91 H 06/20/25 11:41 Blood Pressure Mean 101 06/20/25 11:41 Blood Pressure Position Sitting 06/20/25 11:41 Pulse Oximetry 95 06/20/25 11:41 Oxygen Delivery Method Room Air 06/20/25 11:41 Vital Signs Temperature 98.7 F 06/20/25 11:41 Pulse Rate 85 06/20/25 11:41 Respiratory Rate 18 06/20/25 11:41 Blood Pressure 123/91 H 06/20/25 11:41 Pulse Oximetry 95 06/20/25 11:41 Oxygen Delivery Method Room Air 06/20/25 11:41 Temperature 98.7 F 06/20/25 11:41 Pulse Rate 85 06/20/25 11:41 Respiratory Rate 18 06/20/25 11:41 Blood Pressure 123/91 H 06/20/25 11:41 Pulse Oximetry 95 06/20/25 11:41 Oxygen Delivery Method Room Air 06/20/25 11:41 Medications Administered Medications: Discontinued Medications Generic Name Dose Route Start Last Admin Trade Name Freq PRN Reason Stop Dose Admin Acetaminophen 1,000 mg 06/20/25 13:10 06/20/25 13:51 Acetaminophen 500 Mg Tablet PO 06/20/25 13:11 1,000 mg ONCE ONE Administration Medical Decision Making Imaging Data CT scan - head: Attestation: I have reviewed the pertinent imaging results. Radiologist's impression: Patient: FIONA [place] Facility:?[facility] Patient ID:?[id number] Site Patient ID:?[id number]. Site :?1945 Study:?CT-Head WITHOUT-06/20/2025 12:25:32 PM Ordering Physician:Contreras Rhodes Final Report: INDICATION: Injury COMPARISON: July 30, 2017 TECHNIQUE: CT examination of the head was performed as axial sections without intravenous contrast. Images were obtained from the vertex of the skull through the skull base. Please note that all CT scans at this facility use dose modulation, iterative reconstruction, and/or weight-based dosing when appropriate to reduce radiation dose to as low as reasonably achievable. FINDINGS: The brain shows no sign of mass lesion, mass effect, hemorrhage, or edema. There are involutional changes. There is moderate to severe cortical atrophy and there is moderate to severe white matter disease. There is no hydrocephalus. The visualized portions of the orbits are normal in appearance. The osseous structures are normal in appearance with no sign of abnormality in the skull base or calvarium. IMPRESSION: Involutional changes. No acute intracranial posttraumatic findings. Please note that all CT scans at this facility use dose modulation, iterative reconstruction, and/or weight-based dosing when appropriate to reduce radiation dose to as low as reasonably achievable. Dictated by Delmar Abel MD @ 06/20/2025 12:38:47 PM (Electronic Signature) Chest x-ray: Attestation: I have reviewed the pertinent imaging results. My impression: Chest images visualize, I see no acute abnormality on my preliminary review. Radiologist's impression: Patient: FIONA [place] Facility:?[facility] Patient ID:?[id number] Site Patient ID:?[id number]. Site :?1945 Study:?XRay-Chest 2 VIEW-06/20/2025 12:58:37 PM Ordering Physician:Contreras Rhodes Final Report: Indication: Fall, hit front of right chest Technique: Chest 2 views. Comparison: None. Findings/Impression: Cardiovascular and mediastinum: Heart size is normal. Unremarkable mediastinum. Lungs and pleural spaces: Lungs are clear. No pleural effusion or pneumothorax. Bones and soft tissues: No acute abnormality. Dictated by Emeli Morales MD @ 06/20/2025 1:04:58 PM (Electronic Signature) XR cervical spine: Attestation: I have reviewed the pertinent imaging results. Radiologist's impression: Patient: FIONA [place] Facility:?[facility] Patient ID:?[id number] Site Patient ID:?[id number]. Site :?1945 Study:?XRay-Spine Cervical 2 VIEW-06/20/2025 1:00:16 PM Ordering Physician:Contreras Rhodes Final Report: Indication: Pain, fall, history of fusion Comparison: None available. Technique: AP and lateral views cervical spine were obtained. Findings: Somewhat limited secondary to poor visualization of the cervicothoracic junction. The cervical vertebral body heights are grossly maintained with extensive fusion of the visualized spinal elements with flowing anterior osteophytosis. No obvious subtle defect of the fusion. The facet joints are grossly well imbricated without significant spondylolisthesis. Poor visualization of the atlantoaxial joint. No obvious prevertebral soft tissue swelling. Impression: Moderately limited evaluation of the cervical spine due to patient positioning. Extensive fusion of the visualized cervical vertebral bodies without evidence of displaced fracture. Recommend follow-up with CT for improved characterization of potential subtle injuries if pain and clinical symptoms persist. Dictated by Hill Iyer MD @ 06/20/2025 1:22:02 PM (Electronic Signature) XR right shoulder: Attestation: I have reviewed the pertinent imaging results. My impression: I do not appreciate any acute fracture on my preliminary review. Radiologist's impression: Patient: FIONA [place] Facility:?[facility] Patient ID:?[id number] Site Patient ID:?[id number]. Site :?1945 Study:?XRay-Shoulder Right SHOULDER MIN 2 VIEW-06/20/2025 12:59:54 PM Ordering Physician:?Margie Rhodes Final Report: Indication: Pain, fall Technique: Right shoulder, 3 views. Comparison: None. Findings/Impression: No acute fracture or malalignment. The glenohumeral and acromioclavicular joints are congruent. Moderate degenerative changes of the acromioclavicular joint with adjacent corticated ossicles. Soft tissues are unremarkable. Dictated by Emeli Morales MD @ 06/20/2025 1:08:19 PM (Electronic Signature) XR right elbow: Attestation: I have reviewed the pertinent imaging results. My impression: I do not appreciate any fracture on my preliminary review. Radiologist's impression: Patient: FIONA [place] Facility:?[facility] Patient ID:?[id number] Site Patient ID:?[id number]. Site :?1945 Study:?XRay-Extremity Right ELBOW 3 VIEW-06/20/2025 12:59:25 PM Ordering Physician:?Margie Rhodes Final Report: Indication: Pain, fall Technique: Right elbow, 3 views. Comparison: None. Findings/Impression: No acute fracture or malalignment. Minimal degenerative changes. No significant joint effusion. Tiny olecranon enthesophyte. Dictated by Emeli Morales MD @ 06/20/2025 1:06:29 PM (Electronic Signature) Discharge Plan Discharge Clinical Impression: Acute pain of right shoulder, Chronic neck pain Fall Qualifiers: Encounter type: initial encounter Qualified Code(s): W19.XXXA - Unspecified fall, initial encounter Concussion Qualifiers: Encounter type: initial encounter Loss of consciousness presence/duration: without LOC Qualified Code(s): S06.0X0A - Concussion without loss of consciousness, initial encounter Patient Disposition: Home, Self-Care Condition: Stable Instructions: Concussion (ED), Shoulder Pain (ED), Chronic Neck Pain (DC) Additional Instructions: Use Tylenol 1000 mg 3 times a day baseline for pain. If needed, can supplement with some ibuprofen per bottle directions as long as you have never been told you have any kidney issues from your primary provider. Can use the arm sling for comfort but do need to do the range of motion pendulum shoulder exercises I have shown you to avoid frozen shoulder. I need you to schedule follow-up with your primary care provider for further evaluation and management of the shoulder, any potential management of ongoing concussion symptoms. If you have further concerns or issues in the interim, the ED is always available for re-evaluation. Activity Level: Activity as Tolerated Prescriptions: No Action metformin 500 mg tablet 500 mg PO BID cyanocobalamin (vitamin B-12) 1,000 mcg capsule 1,000 mcg PO DAILY finasteride 5 mg tablet 5 mg PO DAILY valproic acid 250 mg capsule 500 mg PO BID aspirin 81 mg capsule 81 mg PO DAILY oxybutynin chloride 5 mg tablet 2.5 mg PO DAILY atorvastatin 20 mg tablet 20 mg PO DAILY Follow Up/Referrals: Jarett Gant MD [Primary Care Provider, Family Practice] Stand Alone Forms: [facility] Info Instructions
--- NOTE | 2025-06-20 12:06 | CRLHL7_ITS ---
For Patients: As a result of the Century Cures Act, medical imaging exams and procedure reports are released immediately into your electronic medical record. You may view this report before your referring provider. If you have questions, please contact your health care provider. INDICATION: Injury COMPARISON: July 30, 2017 TECHNIQUE: CT examination of the head was performed as axial sections without intravenous contrast. Images were obtained from the vertex of the skull through the skull base. Please note that all CT scans at this facility use dose modulation, iterative reconstruction, and/or weight-based dosing when appropriate to reduce radiation dose to as low as reasonably achievable. FINDINGS: The brain shows no sign of mass lesion, mass effect, hemorrhage, or edema. There are involutional changes. There is moderate to severe cortical atrophy and there is moderate to severe white matter disease. There is no hydrocephalus. The visualized portions of the orbits are normal in appearance. The osseous structures are normal in appearance with no sign of abnormality in the skull base or calvarium. IMPRESSION: Involutional changes. No acute intracranial posttraumatic findings. Please note that all CT scans at this facility use dose modulation, iterative reconstruction, and/or weight-based dosing when appropriate to reduce radiation dose to as low as reasonably achievable. Dictated by Delmar Abel MD @ 06/20/2025 12:38:47 PM (Electronically Signed)
--- NOTE | 2025-06-20 12:06 | CRLHL7_ITS ---
For Patients: As a result of the Cures Act, medical imaging exams and procedure reports are released immediately into your electronic medical record. You may view this report before your referring provider. If you have questions, please contact your health care provider. Indication: Pain, fall Technique: Right shoulder, 3 views. Comparison: None. Findings/Impression: No acute fracture or malalignment. The glenohumeral and acromioclavicular joints are congruent. Moderate degenerative changes of the acromioclavicular joint with adjacent corticated ossicles. Soft tissues are unremarkable. Dictated by Emeli Morales MD @ 06/20/2025 1:08:19 PM (Electronically Signed)
--- NOTE | 2025-06-20 12:06 | CRLHL7_ITS ---
For Patients: As a result of the Century Cures Act, medical imaging exams and procedure reports are released immediately into your electronic medical record. You may view this report before your referring provider. If you have questions, please contact your health care provider. Indication: Fall, hit front of right chest Technique: Chest 2 views. Comparison: None. Findings/Impression: Cardiovascular and mediastinum: Heart size is normal. Unremarkable mediastinum. Lungs and pleural spaces: Lungs are clear. No pleural effusion or pneumothorax. Bones and soft tissues: No acute abnormality. Dictated by Emeli Morales MD @ 06/20/2025 1:04:58 PM (Electronically Signed)
--- NOTE | 2025-06-20 12:06 | CRLHL7_ITS ---
For Patients: As a result of the Cures Act, medical imaging exams and procedure reports are released immediately into your electronic medical record. You may view this report before your referring provider. If you have questions, please contact your health care provider. Indication: Pain, fall Technique: Right elbow, 3 views. Comparison: None. Findings/Impression: No acute fracture or malalignment. Minimal degenerative changes. No significant joint effusion. Tiny olecranon enthesophyte. Dictated by Emeli Morales MD @ 06/20/2025 1:06:29 PM (Electronically Signed)
--- NOTE | 2025-06-20 12:06 | CRLHL7_ITS ---
For Patients: As a result of the Century Cures Act, medical imaging exams and procedure reports are released immediately into your electronic medical record. You may view this report before your referring provider. If you have questions, please contact your health care provider. Indication: Pain, fall, history of fusion Comparison: None available. Technique: AP and lateral views cervical spine were obtained. Findings: Somewhat limited secondary to poor visualization of the cervicothoracic junction. The cervical vertebral body heights are grossly maintained with extensive fusion of the visualized spinal elements with flowing anterior osteophytosis. No obvious subtle defect of the fusion. The facet joints are grossly well imbricated without significant spondylolisthesis. Poor visualization of the atlantoaxial joint. No obvious prevertebral soft tissue swelling. Impression: Moderately limited evaluation of the cervical spine due to patient positioning. Extensive fusion of the visualized cervical vertebral bodies without evidence of displaced fracture. Recommend follow-up with CT for improved characterization of potential subtle injuries if pain and clinical symptoms persist. Dictated by Hill Iyer MD @ 06/20/2025 1:22:02 PM (Electronically Signed)
[2025-06-20] MEDS: ACETAMINOPHEN 500 MG TABLET 1000 MG PO (13:51)
== END 2025-06-20 14:09 | disposition home or self-care (01) ==
PROVIDERS: Emergency Provider Family Medicine; PCP Surgery
DX: S06.0X0A Concussion without loss of consciousness, initial encounter (principal); M25.511 Pain in right shoulder; M54.2 Cervicalgia; G89.29 Other chronic pain; W01.198A Fall on same level from slipping, tripping and stumbling with subsequent striking against other object, initial encounter
CPT/HCPCS: 70450; 71046; 72040; 73030; 73080; 99284; 99285; A9270